=== PATIENT | male | born 1955 | race Caucasian/White ===

== ENCOUNTER 2023-06-18 16:11 | Emergency (ER) | payer OTHER, BC ==
--- OUTSIDE RECORDS SUMMARY | 2023-06-18 16:15 | XMS REPORT | Continuity of Care Document ---
:1955 Author Organization [facility] t Address [address] [place] [address] [address] [place] [address] Care Team Providers Name Role Phone No, Pcp [facility] Primary Care Physician Unavailable TERA LEIGH Attending Clinician Unavailable VICKI LING Attending Clinician Unavailable Lab, Adc Fam Pob I Attending Clinician Unavailable Hector [employer]QU[employer] MECHANICVicki Wood Attending Clinician TERA LEIGH Admitting Clinician Unavailable Payers Payer Name Policy Type Policy Number Effective Date Expiration Date S hever MEDICARE A B [id number] 2018 00:00:00 [place] [id number] 2020 OS 00:00:00 BCBS TRADITIONAL [id number] 2018 00:00:00 MEDICARE PART A \\T\\ [id number] 2018 B 00:00:00 Problems This patient has no known problems. Allergies, Adverse Reactions, Alerts Allergy Allergy Status Severity Reaction(s) Onset Inactive Treating Comm ents Source Name Type Date Date Clinician NO KNOWN Drug Active Joseph ALLERGALEXIS Class ity of [facility] NO KNOWN Allergy Active [facility] Social History Social Habit Start Date Stop Date Quantity Comments Source Exposure to Not sure [facility]-CoV[facility]2 [facility] (event) Branch Alcohol intake 2020-12-15 2020-12-15 Ex-drinker [facility] 00:00:00 00:00:00 ([facility] Tobacco use and 2020-12-14 2020-12-14 Smokeless tobacco [facility] exposure [facility]-user [facility] Alcohol Comment 2020-12-14 2020-12-[address] [facility]00 [facility] Sex Assigned At [address] [facility] 00:00:00 [facility]:00 [facility] Smoking Status Start Date Stop Date Source Unknown if ever smoked [facility] Never smoked tobacco [facility] Medications Ordered Filled Start Stop Current Ordering Indication Dosage Frequency Signature Comments Components Source Medication Medication Date Date Medication? Clinician (SIG) Name Name metFORMIN Yes 500mg Take [address] [facility] (GLUCOPHAGE 5-05 mg [facility] ) 500 MG 12:56: mouth 2 Medica l tablet 38 (two) Center times daily with breakfast and dinner. aspirin 81 Yes 81mg QD Take [address] MG EC 5-05 by [facility] tablet 12:56: daily. Medical 38 Center pantoprazol Yes 40mg QD Take [address] e 5-05 by [facility] (PROTONIX) 12:56: daily. Medic al 40 MG 38 Center tablet valsartan-h Yes 1{tbl} QD Take [address] ydrochlorot 5-05 tablet by Jhon es hiazide 12:56: mouth Medical (DIOVAN-HCT 38 daily. Center ) 320-12.5 mg per tablet allopurinoL Yes 300mg QD Take [address] (ZYLOPRIM) 5-05 mg [facility] 300 MG 12:56: mouth Medical tablet 38 daily. [place] omega-3 Yes 2g Q.5D Take [address] fatty 5-05 by mouth [facility] acids-fish 12:56: (two) Medica l oil 38 times Center 340-1,000 daily. mg Cap per capsule b complex Yes 1{capsu QD Take [address] vitamins 5-05 le} capsule by [facility] capsule 12:56: mouth Medical 38 daily. [place] cholecalcif Yes 2000U QD Take 2,[address] claudia, 5-05 Units by [facility] vitamin D3, 12:56: mouth Medic al 2,000 unit 38 daily. Center Tab atorvastati Yes 40mg QD Take [address] n (LIPITOR) 5-05 by mouth Luke s 40 MG 12:56: daily. Medical tablet 38 Center magnesium Yes 400mg QD Take [address] oxide 5-05 mg by [facility] (MAG-OX) 12:56: mouth Medical 400 mg 38 daily. Center (241.3 mg magnesium) tablet glimepiride Yes 2mg Take [address] (AMARYL) 2 5-05 by [facility] MG tablet 12:56: every Medical 38 morning Center before breakfast. Vital Signs Vital Name Observation Time Observation Value Comments Source HEIGHT 2020-12-15 10:10:00 185.4 cm WEIGHT 2020-12-15 10:10:00 100.835 kg HEIGHT 2020-12-14 10:52:00 185.4 cm WEIGHT 2020-12-14 10:52:00 103.874 kg HEIGHT 2020-12-15 10:10:00 185.4 cm WEIGHT 2020-12-15 10:10:00 100.835 kg HEIGHT 2020-12-14 10:52:00 185.4 cm WEIGHT 2020-12-14 10:52:00 103.874 kg Procedures This patient has no known procedures. Plan of Care Planned Activity Planned Date Details Comments Source Future Scheduled 2023-04-13 Influenza Vaccine (#1) [facility] Test 00:00:00 [code = Influenza Medical Ce nter Vaccine (#1)] Future Scheduled 2022-08-[address] [facility] Test 00:00:00 (12+) [code = Medical Center DEPRESSION SCREENING (12+)] Future Scheduled 2022-08-13 FALLS RISK SCREENING [facility] Test 00:00:00 [code = FALLS RISK Medical C enter SCREENING] Future Scheduled 2021-12-[address] [facility] Test 00:00:00 Counseling and Medical Cente r Screening (12+) [code = Tobacco Cessation Counseling and Screening (12+)] Future Scheduled 2019-07-[address] [facility] Test 00:00:00 WELLNESS (YEAR 2 or Medical Center FIRST YEAR if no IPPE) [code = MEDICARE ANNUAL WELLNESS (YEAR 2 or FIRST YEAR if no IPPE)] Future Scheduled 2018 PNEUMOCOCCAL 65+ YRS ([address] [facility] Test 00:00:00 - PCV) [code = Medical Cente r PNEUMOCOCCAL 65+ YRS (1 - PCV)] Future Scheduled 2003 SHINGLES VACCINES ([address] [facility] Test 00:00:00 2) [code = SHINGLES Medical Center VACCINES (1 of 2)] Future Scheduled 1972 DTAP/TDAP/TD VACCINES [facility] Test 00:00:00 (1 - Tdap) [code = Medical C enter DTAP/TDAP/TD VACCINES (1 - Tdap)] Future Scheduled 1971 HEPATITIS C SCREENING [facility] Test 00:00:00 [code = HEPATITIS C Medical Center SCREENING] Future Scheduled 1956-01-18 COVID-19 VACCINE (#1) [facility] Test 00:00:00 [code = COVID-[address] VACCINE (#1)] Future Scheduled 1953 Screening for malignant [facility] Test 00:00:00 neoplasm of colon Medical Ce nter (procedure) [code = 955144976] Future Scheduled 1953 Screening for malignant [facility] Test 00:00:00 neoplasm of colon Medical Ce nter (procedure) [code = 186531685] Future Scheduled 1953 Screening for malignant [facility] Test 00:00:00 neoplasm of colon Medical Ce nter (procedure) [code = 570712594] Future Scheduled 1955 Sigmoidoscopy [code = [facility] Test 00:00:00 Sigmoidoscopy] Medical Cente r Future Scheduled 1953 CT Colonography (combo) [facility] Test 00:00:00 [code = CT Colonography [facility] (combo)] Future Scheduled 1953 Screening for malignant [facility] Test 00:00:00 neoplasm of colon Medical Ce nter (procedure) [code = 057809354] Encounters Start End Encounter Admission Attending Care Care Encounter Source Date/Time Date/Time Type Type Clinicians Facility Department ID 2021-05-21 Outpatient MIRELLA [facility] Surgery [id number] [facility] 16:10:15 TERA 2023-06-15 2023-06-15 Outpatient [facility] [id number] [place]man 10:16:57 10:16:57 [id number] F [place] 2020-12-14 2020-12-14 Outpatient [facility] [id number] [facility] 00:00:00 00:00:00 2020-12-10 2020-12-10 Outpatient R HECTOR [facility] [id number] [facility] 10:20:00 10:20:[address] [facility] 2020-12-10 2020-12-10 Laboratory Lab, Adc Fam Pob I [facility] 1.2. [id number] Univers 09:52:42 10:12:42 Only Vicki Ling [facility] [id number] [facility] [id number] Julio C as Professio [phone] [address] Office Building One Results Test Description Test Time Test Comments Results Result [facility] e Comments FINE NEEDLE 2020-12-17 Medical Cytology Report ASPIRATION BY 20:17:00 Case: [id number] CLINICIAN Authorizing Provider: Tera Leigh MD Collected: 12/15/2020 11:13 AM Ordering Location: [facility] Endoscopy Received: 12/15/2020 02:11 PM Services Pathologist: Cabrera Alcala MD Specimen: Pancreatic, Karie-pancreatic lymph node in CRR KARIE-PANCREATIC LYMPH NODE FNA BY CLINICIAN (CYTOSPINS AND CELL BLOCK OF ASPIRATE): - NEGATIVE FOR METASTATIC CARCINOMA POLYMORPHOUS LYMPHOCYTES SEEN, CRUSH ARTIFACT IN CELL BLOCK Signing Pathologist Direct Phone Line: [phone] y signed by Cabrera Alcala MD on 12/17/2020 at 8:17 [id number](2.1 x 1.8 cm) enlarged triangular lymph node in the karie-pancreatic regionPERI-PANCREATIC LYMPH NODE FNAReceived 17 mls in cytorich red; prepared 4 cytospins, cell block (A2) (cell block placed in formalin at 2:22 pm, 12/15/2020) Performed. The interpretation of this case included the use of immunohistochemistry or special stains.Control Slides Examined: In-house known positive controls were evaluated along with the test tissue. These control slides run alongside of the patients sample show appropriate staining. Internal positive and negative controls when available are evaluated Immunohistochemistry technical testing was performed at [facility], Pathology Laboratory where it was developed and its performance characteristics were determined. It has not been cleared or approved by the U.S. Food and Drug Administration. The FDA has determined that such clearance or approval is not necessary. The test is used for clinical purposes. It should not be regarded as investigational or for research. This laboratory is certified under the Clinical Laboratory Improvement Amendments of 1988 (CLIA-88) as qualified to perform high complexity clinical laboratory testing.[facility], Department of Pathology, [address] [place] [id number], [facility]bn[facility]ju[facility], [facility] of Pathology, [address] [place] [id number], [facility]lmdsdLos [facility], Department of Pathology, [address] [place] [address], TISSUE EXAM 2020-12-16 Surgical Pathology Report 14:49:00 Case: [id number] Authorizing Provider: Tera Leigh MD Collected: 12/15/2020 11:02 AM Ordering Location: [facility] Endoscopy Received: 12/15/2020 02:14 PM Services Pathologist: Darline Gomez MD Specimen: Biopsy, Gastroesophageal Junction A. GASTROESOPHAGEAL JUNCTION, BIOPSY: - UNREMARKABLE SQUAMOUS MUCOSA - NEGATIVE FOR DYSPLASIA/ MALIGNANCY Signing Pathologist Direct Phone Line: [phone] y signed by Darline Gomez MD on 12/16/2020 at 2:49 [id number] Biopsy Gastroesophageal junction A. Received in formalin labeled with the patient's name, medical record number and "Biopsy Gastroesophageal Junction" and consists of 1 smith soft tissue fragment measuring up to 0.2 cm in greatest dimension, which are submitted in toto in A1.SZ Performed. FLOW CYTOMETRY REQUISITION 2020-12-16 12:35:00 Test Item Value Reference Range Interpretation Comme nts FLOW CYTOMETRY RESULT POINTER (ROHIT) (test code = 2758) See Separ ate Report FLOW CYTOMETRY AP CASE # (BEAKER) (test code = 2759) [id number] FLOW [id number] 16:52:00Flow Cytometry Report Case: [id number] Authorizing Provider: Tera Leigh MD Collected: 12/15/2020 11:10 AM Ordering Location: [facility] Endoscopy Received: 12/15/2020 01:39 PM Services Pathologist: Gilmar Casey MD Specimen: Other LYMPH NODE, KARIE-PANCREATIC, FLOW CYTOMETRY:- ABERRANT CD5-POSITIVE B CELL POPULATION WITH KAPPA-LIGHT CHAIN RESTRICTION - NO ABERRANT T CELL POPULATION- SEE COMMENT The patient with EMR history of chronic lymphocytic leukemia. The immunophenotype of the monotypic CD5 positive B lymphocyte population identified is compatible with a diagnosis of CLL/SLL. Clinical correlation is recommended.[id number] year old male with peripancreatic and mesenteric lymphadenopathy. Reported history of CLL.Lymph node, karie- pancreatic CD8, surface-[place], CD56, surface-Lambda, CD5, CD19, CD10, CD3, CD20, CD4, CD45, CD23, CD49d, CD38, [id number] Viability: 87.2% Number of Events Acquired: [id number] B cell population identified (73% of cellularity)POSITIVE: CD45, CD19, CD20, CD5, CD200, CD23 (dim), CD38, CD49d, Charlie paNEGATIVE: CD10, Lambda In addition, the following populations are identified: Lymphocytes: Bright CD45+ lymphocytes comprise 87.4% of total cells. T cells show a CD4:CD8 ratio of 3.4 and normal expression of the pedersen T cell antigens CD3 and CD5. B cells are described above. Myeloid/monocytic populations: As identified by CD45 and light scatter characteristics, granulocytes comprise 11.1% of cells analyzed, and monocytes comprise 0.6% of total cells. The remaining events analyzed represent nonviablecells, non-hematolymphoid cells, and debris.These tests were developed and their performance characteristics determined by [facility]. They have not been cleared or approved by the U.S. Food and Drug Administration. The FDA has determined that such clearance or approval is not necessary. It should not be regarded as investigational or for research. This laboratory is certified under the Clinical Laboratory Improvement Amendments of 1988 ("CLIA") as qualified to perform high-complexity clinical testing.[facility], Department of Pathology, [address] [place] [address], [facility]rcxaLos [facility], Department of Pathology, [address] [place] [address], LAXD NEEDLE ASPIRATE (FNA) [id number] 16:00:00 Test Item Value Reference Range Interpretation Comments CYTOLOGY RESULT POINTER See Separate Report (ROHIT) (test code = 2629) POCT-GLUCOSE [id number] 10:55:00 Test Item Value Reference Range Interpretation Comments POC-GLUCOSE METER 138 mg/dL 70-110 H : TESTED A T [facility] 6720 (ROHIT) (test code = ARIELA Ryan [facility], 1538) [address]: Hydraulic Blocker/Techni samuel ID = [id number] for LORENZA VALENCAI
[2023-06-18 16:53] LABS: Protime INR 1.18
[2023-06-18 17:12] LABS: Magnesium 2.5 mg/dL (1.6-2.4); Troponin High Sensitivity 3.7 pg/mL (<58.9)
--- NOTE | 2023-06-18 18:17 | RAD REPORT ---
EXAM DESCRIPTION: Monica Single View06/18/2023 5:14 pm CLINICAL HISTORY: CHEST PAIN COMPARISON: No comparisons TECHNIQUE: Portable AP view of the chest. FINDINGS: The lungs are clear. No pneumothorax or effusion. The cardiomediastinal contours are unre markable. IMPRESSION: No acute cardiopulmonary process.
[2023-06-18 18:44] LABS: Absolute Lymphocytes (CBC) 359.5 K/uL (0.7-4.9); Hematocrit 16.5 % (39.6-49.0); Lymphocytes % 96.5 % (15.3-44.8); MCV 107.8 fL (80-100); MPV 8.3 fL (7.6-11.3); Platelets 66 thou/uL (152-406); RBC Red Blood Cell Count 1.53 M/uL (4.33-5.43)
--- NOTE | 2023-06-18 20:28 | EDPHYS ---
[facility] Name: Leonard Murray Age: 67 yrs Sex: Male : 1955 Arrival Date: 06/18/2023 Time: 16:11 Bed 4 Private MD: ED Physician Fransisco Laurent HPI: 06/18 16:49 This 67 yrs old Male presents to ER via Ambulatory with complaints of Chest Pain, kb Shortness Of Breath. 16:49 Patient is a 67-year-old male with a history of CHF, CLL and diabetes who presents for kb chest pain, fatigue and shortness of breath on exertion that started 1-1/2 weeks ago. States he was seen by his doctor on Sunday, had blood drawn and was told his hemoglobin was 6.5. Denies any active bleeding, dark stools.. Historical: - Allergies: 16:30 No Known Allergies; cm10 - PMHx: 16:30 Leukemia; Diabetes mellitus; Congestive heart failure; cm10 - Immunization history:: Adult Immunizations unknown. - Social history:: Smoking status: Patient denies any tobacco usage or history of. ROS: 16:49 Constitutional: Negative for fever, chills, and weight loss, kb 16:49 Constitutional: Positive for fatigue, 16:49 Cardiovascular: Positive for chest pain, 16:49 Respiratory: Positive for dyspnea on exertion, 16:49 All other systems are negative, Exam: 16:49 Constitutional: This is a well developed, well nourished patient who is awake, alert, kb and in no acute distress. Head/Face: Normocephalic, atraumatic. ENT: Moist Mucous membranes Cardiovascular: Regular rate Respiratory: Respirations even and unlabored. No increased work of breathing. Talking in full sentences Abdomen/GI: Soft, non-tender. No distention Skin: Warm, dry with normal turgor. Normal color. MS/ Extremity: Pulses equal, no cyanosis. Neurovascular intact. Full, normal range of motion. Neuro: Awake and alert, GCS 15, oriented to person, place, time, and situation. Moves all extremities. Normal gait. Vital Signs: 16:29 BP 107 / 56; Pulse 91; Resp 18; Temp 96.9(IR); Pulse Ox 91% on R/A; Weight 98.88 kg; cm10 Height 6 ft. 1 in. ; 17:11 BP 105 / 57; Pulse 74; Resp 16; Pulse Ox 97% on 2 lpm NC; mb9 18:55 BP 111 / 50; Pulse 74; Resp 18; Pulse Ox 96% on R/A; mb9 19:00 BP 106 / 53; Pulse 73; Resp 16; Pulse Ox 96% on 2 lpm NC; km8 20:00 BP 114 / 65; Pulse 74; Resp 16; Pulse Ox 97% on 2 lpm NC; km8 21:00 BP 129 / 66; Pulse 75; Resp 16; Pulse Ox 97% on 2 lpm NC; km8 22:00 BP 119 / 69; Pulse 76; Resp 16; Pulse Ox 98% on 2 lpm NC; km8 23:00 BP 113 / 67; Pulse 76; Resp 16; Pulse Ox 97% on 2 lpm NC; 8 06/19 00:00 BP 118 / 65; Pulse 74; Resp 16; Pulse Ox 97% on 2 lpm NC; [facility] 06/18 16:29 Body Mass Index 28.76 (98.88 kg, 185.42 cm) cm10 MDM: 06/18 16:18 Patient medically screened. kb 16:50 Differential diagnosis: abnormal EKG, acute myocardial infarction, coronary artery kb disease congestive heart failure Anemia. Data reviewed: vital signs, nurses notes. 19:50 Consideration of Admission/Observation Escalation of care including kb admission/observation considered. will transfer pt per Dr Munoz's recommendation. Management of patient was discussed with the following: Vein Pumper: Dr Munoz recommends transfer. 19:50 Counseling: I had a detailed discussion with the patient and/or guardian regarding the kb historical points, exam findings, and any diagnostic results supporting the discharge/admit diagnosis, lab results, radiology results, the need to transfer to another facility, [facility] does not immediately have the required specialist. 20:24 Management of patient was discussed with the following: Dr Torres accepts pt for transfer kb to [facility]. 06/18 16:22 Order name: Basic Metabolic Panel; Complete Time: 17:14 kb 06/18 16:22 Order name: CBC with Diff; Complete Time: 20:45 kb 06/18 16:22 Order name: Magnesium; Complete Time: 17:14 kb 06/18 16:22 Order name: NT PRO-BNP; Complete Time: 17:14 kb 06/18 16:22 Order name: PT-INR; Complete Time: 16:53 kb 06/18 16:22 Order name: Troponin HS; Complete Time: 17:14 kb 06/18 16:22 Order name: Type And Screen kb 06/18 17:17 Order name: Potassium; Complete Time: 17:51 kb 06/18 20:20 Order name: SARS-COV-2 Antigen Rapid; Complete Time: 21:07 kb 06/18 20:37 Order name: Ferritin; Complete Time: 21:45 kb 06/18 20:37 Order name: B12; Complete Time: 21:45 kb 06/18 20:37 Order name: TIBC; Complete Time: 21:45 kb 06/18 20:37 Order name: LDH; Complete Time: 21:45 kb 06/18 20:37 Order name: Retic Count; Complete Time: 21:24 kb 06/18 20:38 Order name: CBC with Manual Differential; Complete Time: 23:05 kb 06/18 20:42 Order name: CBC Smear Scan; Complete Time: 20:45 EDMS 06/18 20:47 Order name: Slides for Pathologist Review EDMS 06/18 23:04 Order name: Packed RBCs (Additional Unit) EDMS 06/19 00:11 Order name: ABO/RH no charge; Complete Time: 00:12 EDMS 06/18 16:22 Order name: XRAY Chest (1 view); Complete Time: 18:18 kb 06/18 16:22 Order name: EKG; Complete Time: 16:23 kb 06/18 16:22 Order name: Cardiac monitoring; Complete Time: 16:33 kb 06/18 16:22 Order name: EKG - Nurse/Tech; Complete Time: 16:33 kb 06/18 16:22 Order name: IV Saline Lock; Complete Time: 16:33 kb 06/18 16:22 Order name: Labs collected and sent; Complete Time: 16:33 kb 06/18 16:22 Order name: O2 Per Protocol; Complete Time: 16:33 kb 06/18 16:22 Order name: O2 Sat Monitoring; Complete Time: 16:33 kb Administered Medications: No medications were administered Disposition Summary: 06/18/23 20:26 Transfer Ordered Notes: Transfer Location: [facility] kb Reason: Higher level of care kb Condition: Stable kb Problem: new kb Symptoms: are unchanged kb Accepting Physician: Dr Torres(06/19/23 02:06) km8 Diagnosis - Anemia, unspecified kb - Elevated white blood cell count kb Forms: - Medication Reconciliation Form kb - SBAR form kb Addendum: 06/23/2023 07:53 I was immediately available for consultation during this patient's visit. I did not e c2 personally see the patient or guide the patient's care. . Signatures: Dispatcher [employer] Marily Ni, JOSE-C JOSE-Sarina Neal RN RN cm10 Fransisco Laurent MD MD ec2 Jyoti Carson RN RN km8 Corrections: (The following items were deleted from the chart) 06/19 02:06 06/18 20:26 Dr Brian beltran km8
--- NOTE | 2023-06-18 20:28 | ER ---
Nurse's Notes [facility] Name: Leonard Murray Age: 67 yrs Sex: Male : 1955 Arrival Date: 06/18/2023 Time: 16:11 Bed 4 Private MD: Diagnosis: Anemia, unspecified;Elevated white blood cell count Presentation: 06/18 16:29 Chief complaint: Patient states: chest pain and shortness of breath X1.5 weeks. Pt cm10 states that his PCP told him to come to the ED for HGB of 6.5. Coronavirus screen: Vaccine status: Patient reports being unvaccinated. Client denies travel out of the [place] in the last 14 days. Ebola Screen: Patient denies travel to an Ebola-affected area in the 21 days before illness onset. No symptoms or risks identified at this time. Initial Sepsis Screen: Does the patient meet any 2 criteria? No. Patient's initial sepsis screen is negative. Does the patient have a suspected source of infection? No. Patient's initial sepsis screen is negative. Risk Assessment: Do you want to hurt yourself or someone else? Patient reports no desire to harm self or others. Onset of symptoms was June 18, 2023. 16:29 Method Of Arrival: Ambulatory cm10 16:29 Acuity: MONSERRAT 2 cm10 Triage Assessment: 16:30 General: Appears in no apparent distress. comfortable, Behavior is calm, cooperative. cm10 Pain: Complains of pain in chest. EENT: No deficits noted. No signs and/or symptoms were reported regarding the EENT system. Neuro: No deficits noted. Vergara Agitation-Sedation Scale (RASS): 0 - Alert and Calm Level of Consciousness is awake, alert, obeys commands, Oriented to person, place, time, situation. Cardiovascular: No deficits noted. Reports chest pain, shortness of breath, since 1.5 weeks Patient's skin is warm and dry. Respiratory: No deficits noted. Airway is patent Respiratory effort is even, unlabored, Respiratory pattern is symmetrical. GI: No deficits noted. No signs and/or symptoms were reported involving the gastrointestinal system. : No deficits noted. No signs and/or symptoms were reported regarding the genitourinary system. Derm: No deficits noted. No signs and/or symptoms reported regarding the dermatologic system. Skin is intact, Skin is pink, warm \T\ dry. Musculoskeletal: No deficits noted. No signs and/or symptoms reported regarding the musculoskeletal system. Range of motion: intact in all extremities. Historical: - Allergies: 16:30 No Known Allergies; cm10 - PMHx: 16:30 Leukemia; Diabetes mellitus; Congestive heart failure; cm10 - Immunization history:: Adult Immunizations unknown. - Social history:: Smoking status: Patient denies any tobacco usage or history of. Screenin:32 [facility] ED Fall Risk Assessment (Adult) History of falling in the last 3 months, cm10 including since admission No falls in past 3 months (0 pts) Confusion or Disorientation No (0 pts) Intoxicated or Sedated No (0 pts) Impaired Gait No (0 pts) Mobility Assist Device Used No (0 pt) Altered Elimination No (0 pt) Score/Fall Risk Level 0 - 2 = Low Risk Oriented to surroundings, Maintained a safe environment, Hourly rounding (assess needs \T\ fall precautionary measures) done. Abuse screen: Denies threats or abuse. Denies injuries from another. Nutritional screening: No deficits noted. Tuberculosis screening: No symptoms or risk factors identified. Assessment: 16:37 Reassessment: see triage assessment. mb9 17:45 Reassessment: No changes from previously documented assessment. Patient and/or family mb9 updated on plan of care and expected duration. Pain level reassessed. Patient is alert, oriented x 3, equal unlabored respirations, skin warm/dry/pink. 18:55 Reassessment: No changes from previously documented assessment. Patient and/or family mb9 updated on plan of care and expected duration. Pain level reassessed. Patient is alert, oriented x 3, equal unlabored respirations, skin warm/dry/pink. 19:31 Reassessment: Patient appears in no apparent distress at this time. No changes from km8 previously documented assessment. Patient and/or family updated on plan of care and expected duration. Pain level reassessed. Patient is alert, oriented x 3, equal unlabored respirations, skin warm/dry/pink. 21:25 Reassessment: attempted to call report; nurse unavailable; they will call back in 5 km8 mins. 22:15 Reassessment: Patient appears in no apparent distress at this time. Patient and/or km8 family updated on plan of care and expected duration. Pain level reassessed. Patient is alert, oriented x 3, equal unlabored respirations, skin warm/dry/pink. 22:16 Reassessment: report called to LUCITA Hooper at [facility]. [facility] 23:30 Reassessment: Patient appears in no apparent distress at this time. No changes from km8 previously documented assessment. Patient and/or family updated on plan of care and expected duration. Pain level reassessed. Patient is alert, oriented x 3, equal unlabored respirations, skin warm/dry/pink. 06/19 00:04 Reassessment: OUTSIDE LAB CALLED AND THEY STATED BLOOD SHOULD BE READY IN 10 MINUTES. jj7 00:56 Reassessment: started blood transfusion; see blood transfusion paperwork scanned into [facility] chart. Vital Signs: 06/18 16:29 BP 107 / 56; Pulse 91; Resp 18; Temp 96.9(IR); Pulse Ox 91% on R/A; Weight 98.88 kg; cm10 Height 6 ft. 1 in. ; 17:11 BP 105 / 57; Pulse 74; Resp 16; Pulse Ox 97% on 2 lpm NC; mb9 18:55 BP 111 / 50; Pulse 74; Resp 18; Pulse Ox 96% on R/A; mb9 19:00 BP 106 / 53; Pulse 73; Resp 16; Pulse Ox 96% on 2 lpm NC; km8 20:00 BP 114 / 65; Pulse 74; Resp 16; Pulse Ox 97% on 2 lpm NC; km8 21:00 BP 129 / 66; Pulse 75; Resp 16; Pulse Ox 97% on 2 lpm NC; km8 22:00 BP 119 / 69; Pulse 76; Resp 16; Pulse Ox 98% on 2 lpm NC; km8 23:00 BP 113 / 67; Pulse 76; Resp 16; Pulse Ox 97% on 2 lpm NC; km8 06/19 00:00 BP 118 / 65; Pulse 74; Resp 16; Pulse Ox 97% on 2 lpm NC; [facility] 06/18 16:29 Body Mass Index 28.76 (98.88 kg, 185.42 cm) cm10 ED Course: 06/18 16:14 Patient arrived in ED. im 16:18 Marily Jules FNP-C is PHCP. kb 16:18 Fransisco Laurent MD is Attending Physician. kb 16:21 Arm band placed on Patient placed in an exam room, on a stretcher. ll1 16:25 Missed attempt(s): 18 gauge in right forearm. Bleeding controlled, band aid applied, cm10 catheter tip intact. 16:30 Triage completed. cm10 16:32 Patient has correct armband on for positive identification. Placed in gown. Bed in low cm10 position. Call light in reach. Side rails up X2. Provided Education on: ER process and procedures.. Client placed on continuous cardiac and pulse oximetry monitoring. NIBP monitoring applied. 16:32 No provider procedures requiring assistance completed. Initial lab(s) drawn, by me, cm10 sent to lab. Inserted saline lock: 20 gauge in right antecubital area, using aseptic technique. Blood collected. Oxygen administration via nasal cannula \T\ 2L/min. 16:37 Nitza Linares, RN is Primary Nurse. mb9 17:16 XRAY Chest (1 view) In Process Unspecified. EDMS 18:49 Notified Nurse Practitioner and/or Physician Research Contracts Supervisor of a critical lab result(s), WBC ll1 372.7 and HGB 5.2. 19:15 Initiated transfer to [facility] transfer center, spoke with Kendra. jr12 20:16 Kendra from [facility] transfer center returned call to initiate Doc to [facility] with Dr. Torres from [facility] and Marily GARCIA-Claire. 20:43 SARS-COV-2 Antigen Rapid Sent. wm 21:02 CBC with Manual Differential Sent. wm 21:03 Retic Count Sent. wm 21:03 LDH Sent. wm 21:03 TIBC Sent. wm 21:03 B12 Sent. wm 21:03 Ferritin Sent. wm 22:08 Patient transferred, IV remains in place. km8 06/19 00:40 Provided Education on: Blood Transfusion. km8 Administered Medications: No medications were administered Medication: 06/18 16:33 VIS not applicable for this client. cm10 06/19 00:56 Blood products: PRBCs X 1 unit given. See transfusion record. km8 Outcome: 06/18 20:26 ER care complete, transfer ordered by . kb 06/19 01:50 Condition: good km8 01:50 Transferred by ground EMS to [facility], Transfer form completed. [facility] 01:50 Discharge instructions given to patient, Instructed on the need for transfer, Demonstrated understanding of instructions, 02:06 Patient left the ED. 8 Signatures: Dispatcher [employer] EDMarily Méndez, PLASTER MACHINE OPERATOR-C PLASTER MACHINE OPERATOR-Adolfo Babb, RN RN ll1 Megan Jose Juwairiyah, RN RN jj7 Nitza Linares RN RN mb9 Yessenia Massey Clarissa RN RN cm10 India Daniels 12 Jyoti Carson RN RN km8 Corrections: (The following items were deleted from the chart) 06/18 23:30 19:00 BP 106 / 53; Pulse 73bpm; Resp 16bpm; Pulse Ox 96% RA; [place] [id number] 23:30 22:00 BP 119 / 69; Pulse 76bpm; Resp 16bpm; Pulse Ox 98% RA; [place] [id number] 23:30 21:00 BP 129 / 66; Pulse 75bpm; Resp 16bpm; Pulse Ox 97% RA; [place] [id number] 23:30 20:00 BP 114 / 65; Pulse 74bpm; Resp 16bpm; Pulse Ox 97% RA; [place] [id number]
[2023-06-18 20:41] LABS: Anisocytosis 2+; Blood Morphology Comment NOTED (NOT SEEN); Platelet Estimate DECR; Poikilocytosis 2+; White Blood Cell Scan OK (OK)
[2023-06-18 21:02] LABS: SARS-CoV-2 Antigen Rapid Res Negative (Negative)
[2023-06-18 21:09] LABS: RBC Red Blood Cell Count 1.71 M/uL (4.33-5.43)
[2023-06-18 21:44] LABS: Ferritin 456.3 ng/mL (26-388)
[2023-06-18 21:56] LABS: Absolute Lymphocytes (CBC) 383.8 K/uL (0.7-4.9); MPV 8.3 fL (7.6-11.3); Platelets 65 thou/uL (152-406); RBC Red Blood Cell Count 1.65 M/uL (4.33-5.43)
[2023-06-18 22:52] LABS: Smudge Cells 12
[2023-06-18 22:53] LABS: Anisocytosis 1+; Blood Morphology Comment NOTED (NOT SEEN); Platelet Estimate DECR
[2023-06-19] MEDS ORDERED: NA CHLORIDE 0.9% 250 ML ONE (00:45)
[2023-06-19 02:32] VITALS: TEMP 96.9
[2023-06-19 02:40] VITALS: O2SAT 97
[2023-06-19 02:42] VITALS: BP 118/65
--- NOTE | 2023-06-23 14:30 | EKG ---
Test Date: 2023-06-18 Test Time: 16:25:32 Non Destructive Testing Inspector: MB MEASUREMENT RESULTS: Intervals: Rate: 77 MA: 176 QRSD: 80 QT: 396 QTc: 448 [place]: P: 51 MA: 176 QRS: 2 T: 57 INTERPRETIVE STATEMENTS: Normal sinus rhythm Low voltage QRS Cannot rule out Anterior infarct, age undetermined Abnormal ECG No previous ECG available for comparison Electronically Signed On 06-23-23 14:16:49 DINING SERVICE SUPERVISOR by Mike Edge
== END 2023-06-19 02:06 | disposition short-term general hospital (02) ==
LOC: ER 16:11
PROC: 30233N1 Transfusion of Nonautologous Red Blood Cells into Peripheral Vein, Percutaneous Approach (ICD-10-PCS; principal; 2023-06-19)
DX: D64.9 Anemia, unspecified (principal); D72.829 Elevated white blood cell count, unspecified; D69.6 Thrombocytopenia, unspecified; I50.9 Heart failure, unspecified; E11.9 Type 2 diabetes mellitus without complications; Z85.6 Personal history of leukemia; Z11.52 Encounter for screening for COVID-19
CPT/HCPCS: 93005; 85025 ×2; 80048; 36415; 86900; 83735; 86850; 83615; 84132; 85610; 85044; 86901; 86920 ×2; 84484; 82728; 82607; 83540; 83880; 84466; 71045; 36430 ×2; 99285; 87811; P9016; J7050